=== PATIENT | female | born 1975 | race Caucasian/White ===

== ENCOUNTER → 2021-02-23 | Outpatient (CLI) | payer OTHER ==
--- NOTE | 2021-02-23 13:22 | RAD ---
Site ID: [id number] EXAMINATION: XR RT WRIST 3VIEWS. HISTORY: 45 years Female Reason: POST OP RIGHT WRIST IN December. COMPARISON: January 24, 2021. FINDINGS: Plate and screws internal fixation of a distal radius fracture is seen in good alignment. No change f rom the previous exam. A new mildly displaced ulnar styloid fracture is again demonstrated. There is suggestion of the bony bridging seen across the fracture site in the distal radius although part of t he fracture is obscured by the hardware. Mild degenerative changes are seen at the radiocarpal joint. No acute fracture. IMPRESSION: Internal fixation hardware along the distal radius in good alignment with no significant change. Electronically signed by: Anatoly Duong MD (02/23/2021 1:20 PM) [id number]
== END ==
LOC: RAD 12:42
PROVIDERS: ATTEND Physician Assistant
DX: S52.611D Displaced fracture of right ulna styloid process, subsequent encounter for closed fracture with routine healing (principal); M19.041 Primary osteoarthritis, right hand; X58.XXXD Exposure to other specified factors, subsequent encounter; Z98.890 Other specified postprocedural states
CPT/HCPCS: 73110

== ENCOUNTER → 2021-04-06 | Outpatient (CLI) | payer OTHER ==
--- NOTE | 2021-04-06 12:48 | RAD ---
EXAM: Right wrist, 3 views. HISTORY: Fracture fixation. COMPARISON: 02/23/2021 FINDINGS: 3 views of the right wrist are obtained. There is internal fixation of a distal radial meta physeal fracture. There has been healing along the fracture line. There has been no change in a mildl y displaced ulnar styloid fracture. IMPRESSION: 1. Slight interval healing of a distal radial metaphyseal fracture status post internal fixation. 2. No change in a mildly displaced ulnar styloid fracture. Electronically signed by: Zuly Salomon MD (04/06/2021 12:46 PM) [id number]
== END ==
LOC: RAD 12:33
PROVIDERS: ATTEND Physician Assistant
DX: S52.301D Unspecified fracture of shaft of right radius, subsequent encounter for closed fracture with routine healing (principal); S52.611D Displaced fracture of right ulna styloid process, subsequent encounter for closed fracture with routine healing; X58.XXXD Exposure to other specified factors, subsequent encounter; Z98.890 Other specified postprocedural states
CPT/HCPCS: 73110